=== PATIENT | female | born 1970 | race Caucasian/White ===

== ENCOUNTER 2018-02-19 09:21 | Emergency (ER) | payer OTHER ==
[2018-02-19 09:41] VITALS: TEMP 98.8; BMI 24.7
[2018-02-19] MEDS ORDERED: IBUPROFEN 400 MG TABLET (FP) PO ONE ×2 (09:58→11:25)
--- NOTE | 2018-02-19 10:00 | PDOC ---
History of Present Illness - General Chief Complaint: Wound Stated Complaint: ABSCESS BOIL Time Seen by Provider: 02/19/18 09:55 History Source: Patient Exam Limitations: No Limitations - History of Present Illness Initial Comments: 02/19/18 09:56 Patient COME To ER with complaints of pain and showed of worsening nasal abscess. was seen by her PMD on Thursday, and prescribed Bactrim and Cipro and since that time has had swelling to her face and worsening of infection. feels feverish. 02/19/18 12:14 Timing/Duration: reports: getting worse Location: reports: face Associated Symptoms: reports: blisters, fever, headache Past History - Travel Traveled outside of the country in the last 30 days: No Close contact w/someone who was outside of country & ill: No - Past Medical History Allergies/Adverse Reactions: Allergies Allergy/AdvReac Type Severity Reaction Status Date / Time No Known Allergies Allergy Verified 02/19/18 09:36 COPD: No - Immunization History Immunization Up to Date: Yes - Suicide/Smoking/Psychosocial Hx Smoking History: Current every day smoker Number of Cigarettes Smoked Daily: 10 Information on smoking cessation initiated: No Hx Alcohol Use: No Drug/Substance Use Hx: No Review of Systems - Review of Systems Able to Perform ROS?: Yes Is the patient limited Welsh proficient: Yes Constitutional: Yes: Symptoms Reported, See HPI, Fever, Malaise HEENTM: Yes: Symptoms Reported, See HPI, Nose Pain, Nose Congestion Respiratory: Yes: See HPI. No: Symptoms reported, Cough All Other Systems: Reviewed and Negative *Physical Exam - Vital Signs Last Vital Signs Temp Pulse Resp BP Pulse Ox 98.8 F 69 18 156/90 100 02/19/18 09:36 02/19/18 09:36 02/19/18 09:36 02/19/18 09:36 02/19/18 09:36 - Physical Exam General Appearance: Yes: Nourished, Appropriately Dressed HEENT: positive: LORRI, TMs Normal, Pharynx Normal, Nasal Congestion, Rhinorrhea , Other (+ swlling to right cheek, nose with tender/ weeping lesion to upper outer aspect of right nostril, + purulent drianage ) Neck: positive: Supple, Lymphadenopathy (R), Lymphadenopathy (L). negative: Tender Respiratory/Chest: positive: Lungs Clear, Normal Breath Sounds. negative: Chest Tender Cardiovascular: positive: Regular Rate Gastrointestinal/Abdominal: positive: Normal Bowel Sounds, Soft. negative: Tender Musculoskeletal: positive: Normal Inspection Extremity: positive: Normal Capillary Refill, Normal Inspection, Normal Range of Motion. negative: Tender Integumentary: positive: Erythema, Pale Neurologic: positive: desktop publisher II-XII NML intact, Fully Oriented, Alert, Normal Mood/ Affect, Normal Response, Motor Strength 5/5 Moderate Sedation - Procedure Monitoring Vital Signs: Procedure Monitoring Vital Signs Temperature 98.8 F 02/19/18 09:36 Pulse Rate 69 02/19/18 09:36 Respiratory Rate 18 02/19/18 09:36 Blood Pressure 156/90 02/19/18 09:36 O2 Sat by Pulse Oximetry (%) 100 02/19/18 09:36 ED Treatment Course - LABORATORY CBC & Chemistry Diagram: 02/19/18 10:00 02/19/18 10:00 Medical Decision Making - Medical Decision Making 02/19/18 10:01 nasal/ facial cellulitis resistant to PO antibiotics x 4 days. Will move to Main ER for further eval and possible admission. fraud examiner notified and patient updated to plan *DC/Admit/Observation/Transfer Diagnosis at time of Disposition: Facial abscess, Facial cellulitis - Discharge Dispostion Disposition: TRANSFER ACUTE CARE/OTHER HOSP - Referrals Referrals: Elmo Hanks [Primary Care Provider] - - Patient Instructions - Post Discharge Activity
[2018-02-19] MEDS ORDERED: VANCOMYCIN 1 GRAM (PRE-DOCKED) 1,000 MG/250 ML BAG IVPB ONE ×2 (10:34→12:00)
[2018-02-19] MEDS ORDERED: PIPERACILLIN/TAZOB 3.375 GM 3.375 GM in DEXTROSE 5%-WATER - 50 ML IVPB ONE (10:35)
[2018-02-19 10:46] LABS: BASO % 0.8 % (0-2.0); HEMATOCRIT 22.9 % (32.4-45.2); HEMOGLOBIN 7.5 GM/dL (10.7-15.3); LYMPH % 12.5 % (8-40); MCH 23.3 pg (25.7-33.7); MCHC 32.6 g/dl (32.0-36.0); MEAN CELL VOLUME 71.5 fl (80-96); MONO % 6.9 % (3.8-10.2); NEUT % 77.8 % (42.8-82.8); PLATELET COUNT 243 K/MM3 (134-434); RDW 16.5 % (11.6-15.6)
[2018-02-19 11:18] LABS: ALBUMIN 3.7 g/dl (3.4-5.0); ALK PHOS 63 U/L (45-117); ANION GAP 7 MMOL/L (8-16); BILIRUBIN,TOTAL 0.3 mg/dL (0.2-1); BLOOD UREA NITROGEN 8 mg/dL (7-18); CALCIUM 8.4 mg/dL (8.5-10.1); CHLORIDE 106 mmol/L (98-107); CO2 24 mmol/L (21-32); CREATININE 0.7 mg/dL (0.55-1.3); GLUCOSE,RANDOM 101 mg/dL (74-106); SGOT/AST 12 U/L (15-37); SGPT/ALT 14 U/L (13-61); SODIUM 137 mmol/L (136-145); TOT PROT 7.2 g/dl (6.4-8.2)
--- NOTE | 2018-02-19 11:22 | PDOC ---
History of Present Illness - General Chief Complaint: Wound Stated Complaint: ABSCESS BOIL Time Seen by Provider: 02/19/18 09:55 History Source: Patient Exam Limitations: No Limitations - History of Present Illness Initial Comments: 02/19/18 11:17 47-year-old female no past medical history here today complaining of a nasal abscess. Patient states she was started on antibiotics by her primary doctor 5 days ago has been taking Bactrim and Cipro initially started as a intranasal wound subsequently developed swelling on bilateral nares the nose and under the septum as well as swelling to upper lip. States that since she has been taking antibiotics pain is become unbearable symptoms are getting worse today she woke up with a headache complaining of facial swelling as well as eye pain no fevers no chills no nausea vomiting no change to her vision Past History - Past Medical History Allergies/Adverse Reactions: Allergies Allergy/AdvReac Type Severity Reaction Status Date / Time No Known Allergies Allergy Verified 02/19/18 09:36 COPD: No - Immunization History Immunization Up to Date: Yes - Suicide/Smoking/Psychosocial Hx Smoking History: Current every day smoker Number of Cigarettes Smoked Daily: 10 Information on smoking cessation initiated: No Hx Alcohol Use: No Drug/Substance Use Hx: No Review of Systems - Review of Systems Is the patient limited Portuguese proficient: Yes Constitutional: No: Chills, Diaphoresis HEENTM: Yes: Eye Pain, Nose Pain Respiratory: No: Cough, Orthopnea Cardiac (ROS): No: Chest Pain, Edema Integumentary: Yes: Other (abscess) Neurological: Yes: Other Psychiatric: Yes: Other Endocrine: Yes: Other All Other Systems: Reviewed and Negative *Physical Exam - Vital Signs Last Vital Signs Temp Pulse Resp BP Pulse Ox 98.8 F 69 18 156/90 100 02/19/18 09:36 02/19/18 09:36 02/19/18 09:36 02/19/18 09:36 02/19/18 09:36 - Physical Exam Comments: 02/19/18 11:19 02/19/18 11:21 02/19/18 11:21 Awake alert distress the right mid air is noted for an enlarged lesion with crusting scabbing some bruising there is a palpable indurated area proximally 1 " x 1" underneath the skin at bilateral nares the nasal septum it is also palpable on the inner side of the upper lip extraocular motions are intact cardiac exam is normal with regular rate no murmurs rubs or gallops abdomen is soft and nontender lungs are clear bilaterally skin is otherwise unremarkable except for the described lesion and abscess above neurologically patient is alert and oriented 3 Moderate Sedation - Procedure Monitoring Vital Signs: Procedure Monitoring Vital Signs Temperature 98.8 F 02/19/18 09:36 Pulse Rate 69 02/19/18 09:36 Respiratory Rate 18 02/19/18 09:36 Blood Pressure 156/90 02/19/18 09:36 O2 Sat by Pulse Oximetry (%) 100 02/19/18 09:36 ED Treatment Course - LABORATORY CBC & Chemistry Diagram: 02/19/18 10:00 02/19/18 10:00 - ADDITIONAL ORDERS Additional order review: 02/19/18 10:00 RBC 3.20 L MCV 71.5 L MCHC 32.6 RDW 16.5 H MPV 9.0 Neutrophils % 77.8 Lymphocytes % 12.5 Monocytes % 6.9 Eosinophils % 2.0 Basophils % 0.8 - RADIOLOGY Radiology Studies Ordered: Category Date Time Status FACIAL BONES CT WITH CONTRAST [CT] Stat CT Scan 02/19/18 10:34 Ordered Medical Decision Making - Medical Decision Making 02/19/18 11:21 Differential diagnosis includes facial cellulitis underlying abscess due to patient's location of her infection and concerns for intracranial drainage of the venous system we'll give IV vancomycin and Zosyn. We'll consult ENT [facility] labs and cultures. Discussed with Dr. Vences ear nose and throat doctor who states he is unavailable for inpatient consult is only able to see patient's as an outpatient in his office will consult another ENT if unavailable to find ENT to treat the patient here will transfer the patient to [facility] 02/19/18 12:00 d/w Dr Miles at [facility], and ENT dr montaño who accepted pt to ed at [facility] for evaluation and treatment. *DC/Admit/Observation/Transfer Diagnosis at time of Disposition: Facial abscess, Facial cellulitis - Discharge Dispostion Disposition: TRANSFER ACUTE CARE/OTHER HOSP - Referrals Referrals: Elmo Hanks [Primary Care Provider] - - Patient Instructions - Post Discharge Activity
[2018-02-19] MEDS ORDERED: PIPERACILLIN/TAZOB 3.375 GM 3.375 GM/50 ML BAG IVPB ONE (11:26)
[2018-02-19 13:36] VITALS: BP 133/82; PULSE 56
== END 2018-02-19 13:48 | disposition short-term general hospital (02) ==
LOC: JERFT 09:21 → JER 09:21
DX: J34.0 Abscess, furuncle and carbuncle of nose (principal); L03.211 Cellulitis of face
CPT/HCPCS: 36415; 80053; 85025; 87040; 96365; 96375; 99282-25